=== PATIENT | male | born 1990 | race Two or more races ===

== ENCOUNTER → 2018-03-20 | Outpatient (CLI) | payer OTHER ==
--- NOTE | 2018-03-21 10:18 | RAD ---
MR#: [id number] Date of Study: 03/20/2018 Ordering Physician: TRINA KAMARA, Referring Physician: TRINA KAMARA Tech: Kaykay Scott RDMS RVT APPROVED REPORT Patient Location : OUT-PATIENT Indications VENOUS INSUFFICIENCY Risk Factors Grayscale images of the bilateral saphenofemoral junctions do not reveal any obvious evidence of thro mbus. The bilateral lesser saphenous veins do not show any evidence of reflux. The right great saphenous vein measures approximately 5 mm and has a reflux time of 2.5 seconds. The left great saphenous vein measures 4 mm and does not show any significant reflux. Critical Notification Critical Value: No <Conclusion> Positive for reflux in the right greater saphenous vein. Signed by : Bharathi Talamantes, Electronically Approved : 03/21/2018 10:17:23
--- NOTE | 2018-03-23 11:04 | RAD ---
MR#: [id number] Date of Study: 03/20/2018 Ordering Physician: TRINA KAMARA, Referring Physician: Olena TOBIAS: Kaykay Scott RDMS RVT APPROVED REPORT Bilateral Lower Extremity Venous Study for DVT Patient Location: OUT-PATIENT Indications VENOUS INSUFFICIENCY Risk Factors The bilateral lower extremity deep veins were evaluated for thrombus with color Doppler, spectral and grayscale images. On the right the grayscale images of the common femoral, superficial femoral and popliteal veins do n ot demonstrate any evidence of thrombus and these veins appear to be compressible. The proximal super ficial femoral vein is not well visualized. The below-knee veins were not well visualized but grossly appear to be compressible. Spectral imaging and color Doppler do not reveal any evidence of obstruct ion to flow with normal respirophasic variation above the knee. Below the knee there is spontaneous f low noted. On the left, the grayscale images of the common femoral, superficial femoral and popliteal veins do n ot demonstrate any evidence of thrombus and these veins appear to be compressible. The below-knee vei ns again were not well visualized but grossly appear to be compressible. Spectral imaging and color D oppler do not reveal any evidence of obstruction to flow with normal respirophasic variation above th e knee. The below-knee veins demonstrate spontaneous flow. Critical Notification Critical Value: No <Conclusion> 1. No clear evidence of DVT in the bilateral lower extremities. Signed by : Bharathi Talamantes, Electronically Approved : 03/23/2018 11:03:55
== END | disposition home or self-care (01) ==
LOC: US 14:17
PROVIDERS: ATTEND Internal Medicine Cardiovascular Disease
DX: I87.2 Venous insufficiency (chronic) (peripheral) (principal)
CPT/HCPCS: 93970

== ENCOUNTER → 2019-02-05 | Outpatient (CLI) | payer OTHER ==
--- NOTE | 2019-02-05 15:55 | RAD ---
EXAM: Abdomen and pelvis CT without intravenous contrast. HISTORY: Pain. TECHNIQUE: Computed tomographic images of the abdomen and pelvis were obtained without contrast. Multiplanar reformatting was performed. *One or more of the following individualized dose reduction techniques were utilized for this examination: 1. Automated exposure control. 2. Adjustment of the mA and/or kV according to patient size. 3. Use of iterative reconstruction technique. COMPARISON: None. FINDINGS: Evaluation of the lower thorax is unremarkable. No hepatic lesion is seen. The gallbladder, pancreas, spleen, adrenal glands and stomach are unremarkable. There is a 1 mm nonobstructing stone within the lower pole the right kidney. There is no appendicitis. There is no bowel obstruction or abnormal bowel wall thickening. There is no lymphadenopathy. There is no suspicious osseous lesion. IMPRESSION: 1. 1 mm nonobstructing right renal stone. 2. No acute abdominal or pelvic finding. Electronically signed by: Jessica Alvarez MD (02/05/2019 3:52 PM) [id number]
== END | disposition home or self-care (01) ==
LOC: CT 15:04
PROVIDERS: ATTEND Physician Assistant Medical
DX: N20.0 Calculus of kidney (principal); N50.819 Testicular pain, unspecified
CPT/HCPCS: 74176